=== PATIENT | male | born 1965 | race Caucasian/White ===

== ENCOUNTER 2017-11-28 09:23 | Emergency (ER) | payer BC, MEDICAID ==
[~2017-11-28] VITALS: Ht 170.2 cm; Wt 88.9 kg
[2017-11-28 09:30] VITALS: BP 148/86
--- NOTE | 2017-11-28 09:35 | NUR ---
PT AMBULATED TO ER BED 04
--- NOTE | 2017-11-28 09:36 | NUR ---
52Y/M BIB SELF C/O RIGHT LEG PAIN X 3 DAYS, + REDNESS AND SWELLING. PT STATES "HE KICKED A CHAIR X 3 DAYS AGO". 8/10 PAIN SCALE; BED DOWN; BEDRAIL UP X 1; ER MD AWARE AND NOTIFIED OF PT STATUS. HX; HTN RX; LIPITOR
[2017-11-28] MEDS ORDERED: KETOROLAC 60 MG/2 ML VIAL IM ONE (10:05)
--- NOTE | 2017-11-28 10:05 | NUR ---
Patient being evaluated by physician at bedside.
[2017-11-28 10:59] VITALS: BP 135/75
--- NOTE | 2017-11-28 10:59 | NUR ---
Patient discharged with v/s stable. Written and verbal after care instructions given and explained. Patient alert, oriented and verbalized understanding of instructions. Ambulatory with steady gait. All questions addressed prior to discharge. ID band removed. Patient advised to follow up with PMD. Rx of motrin, keflex and bactrium ds given. Patient educated on indication of medication including possible reaction and side effects. Opportunity to ask questions provided and answered.
== END 2017-11-28 10:59 | disposition home or self-care (01) ==
LOC: MED 09:23
DX: L03.115 Cellulitis of right lower limb (principal); I10 Essential (primary) hypertension; F17.200 Nicotine dependence, unspecified, uncomplicated
CPT/HCPCS: 96372; 99283; J1885

== ENCOUNTER 2022-09-12 19:26 | Emergency (ER) | payer MEDICAID ==
[~2022-09-12] VITALS: Ht 157.5 cm; Wt 63.5 kg
[2022-09-12 19:32] VITALS: BP 104/64; PULSE 93; RESP 14; TEMP 98.3; O2SAT 99
--- NOTE | 2022-09-12 19:32 | NUR ---
PT TAKEN TO BED 2 BIBA BLS
--- NOTE | 2022-09-12 19:32 | NUR ---
56 YO M BIBA FROM [facility] WITH C/C OF 10/10 NONRAD CHEST PAIN X2DAYS. REPORTS INCREASED PAIN WITH MOVEMENT AND PALPATION. REPORTS SOB WITH MOVEMENT. HX:SEIZURES NKA
[2022-09-12 20:13] LABS: BASOPHILS # (AUTO) 0.1 K/uL (0.00-0.22); BASOPHILS % (AUTO) 1.1 % (0.0-2.0); EOSINOPHILS % (AUTO) 0.3 % (0.0-4.0); HEMATOCRIT 40.4 % (36-52); HEMOGLOBIN 13.5 g/dL (12.0-18.0); LYMPHOCYTES # (AUTO) 2.1 K/uL (2.0-11.5); LYMPHOCYTES % (AUTO) 43.3 % (20.5-51.1); MEAN CORPUSCULAR HEMOGLOBIN 35 pg (27-31); MEAN CORPUSCULAR HGB CONC 33 g/dL (33-37); MEAN CORPUSCULAR VOLUME 103.3 fL (80-94); MONOCYTES # (AUTO) 0.4 K/uL (0.8-1.0); MONOCYTES % (AUTO) 8.3 % (1.7-9.3); NEUTROPHILS # (AUTO) 2.3 K/uL (1.8-7.7); PLATELET COUNT (AUTO) 228 K/uL (140-450); RED BLOOD CELL COUNT(AUTO) 3.91 MIL/uL (4.20-6.10); RED CELL DISTRIBUTION WIDTH 13.3 % (11.6-13.7); WHITE BLOOD COUNT (AUTO) 4.8 K/uL (4.8-10.8)
[2022-09-12 20:21] LABS: CARBON DIOXIDE 25.5 mmol/L (21-32); CREATININE 0.6 mg/dL (0.6-1.3); POTASSIUM 3.5 mmol/L (3.5-5.1)
--- NOTE | 2022-09-12 21:16 | NUR ---
PT WALKED OUT OF ER WITH IV IN AND CARDIAC LEADS ON. FOLLOWED PT OUTSIDE. IV D/C'D AND LEADS REMOVED. PT SAID, "I WILL JUST LEAVE AMA" Addendum: 09/12/22 at 2119 by CARRIE PT WAS UNWILLING TO RETURN TO ER FOR DISCONTINUATION OF IV. IV D/C'D AND PRESSURE APPLIED BY PATIENT
--- NOTE | 2022-09-12 21:33 | NUR ---
PT RETURNED TO BED 2 AFTER SMOKING CIGARETTES. SAYS THAT HE WAS AT [facility] LAST WEEK AND THEY WANTED HIM ADMITTED BUT HE LEFT AMA. DISCUSSED PLAN OF CARE INCLUDING POSSIBLE TRANSFER TO HIGHER LEVEL OF CARE. PT SAYS HE IS AGREEABLE TO THIS AT THIS TIME
[2022-09-12] MEDS ORDERED: IBUPROFEN 400 MG TAB PO ONE (21:50)
--- NOTE | 2022-09-12 23:00 | NUR ---
pain has decreased to 6/10 since earlier motrin.pt states "i'm better"
--- NOTE | 2022-09-13 01:38 | NUR ---
Patient appears to be resting comfortably in bed. Vital Signs within normal limits. Respirations even and unlabored.
--- NOTE | 2022-09-13 04:28 | NUR ---
AWAKE, AMBULATED TO BR WITH STEADY GAIT
--- NOTE | 2022-09-13 06:00 | NUR ---
Patient appears to be resting comfortably in bed. Vital Signs within normal limits. Respirations even and unlabored.
--- NOTE | 2022-09-13 10:09 | NUR ---
CONTINUE TO AWAIT FOR BED ASSIGNMENT AND TRANSFER INFO. PT STABLE. DENIES PAIN AT THIS TIME. CURRENTLY HAVING A CONVERSATION ON THE PHONE.
--- NOTE | 2022-09-13 11:04 | NUR ---
NO CHANGE IN STATUS. PT CONTINUES TO AWAIT FOR TRANSFER INFORMATION FROM [facility].
--- NOTE | 2022-09-13 12:59 | NUR ---
MD AWARE OF THE PT'S CURRENT VS. PT REQUESTING TO EAT. MD ARIAS APPROVED PT TO HAVE JELLO, PUDDING, AND JUICE, WHICH WERE PROVIDED.
--- NOTE | 2022-09-13 13:01 | NUR ---
PT UP OOB TO RESTROOM. STEADY GAIT NOTED.
--- NOTE | 2022-09-13 19:36 | NUR ---
Pt report given to PATRICIA. Transfer of care at this time.
--- NOTE | 2022-09-13 19:44 | NUR ---
TRANSFER OF CARE FROM DAY SHIFT, REPORT RECEIEVED FROM KANE ROCKWELL. PATIENT IS PENDING TRANSFER TO [facility] WHEN BED BECOMES AVAILABLE
--- NOTE | 2022-09-13 20:54 | NUR ---
SPOKE WITH REGINALD AT [facility] AND PROVIDED PATIENT REPORT PATIENT IS PENDING TRANSFER, TRANSPORT IS CURRENTLY BEING ARRANGED
--- NOTE | 2022-09-13 22:26 | NUR ---
[facility] AT BEDSIDE.
[2022-09-13 22:40] VITALS: BP 161/86; PULSE 78; RESP 16; TEMP 98.3; O2SAT 97
--- NOTE | 2022-09-13 22:40 | NUR ---
Patient to be transferred to [facility]. Is being transferred due to [employer]. Receiving facility has accepting physician and available space. ER physician has signed transfer form. Patient or responsible libertarian has agreed to transfer and signed form. Patient belongings inventoried and will be sent with patient. Copy of nursing notes, lab reports, EKG, Physicians Orders and X-rays to be sent with patient. Report called to REGINALD at receiving facility. [facility] ambulance service has been called for transfer.
== END 2022-09-14 00:01 | disposition critical access hospital (66) ==
LOC: MED 19:26
DX: I62.00 Nontraumatic subdural hemorrhage, unspecified (principal); I10 Essential (primary) hypertension; R07.9 Chest pain, unspecified; R06.02 Shortness of breath
CPT/HCPCS: 36415; 70450; 71045; 80048; 84484; 85025; 93005; 99291; 99292; G0482; Q0092